=== PATIENT | male | born 1990 | race Caucasian/White ===

== ENCOUNTER 2024-04-08 22:33 | Emergency (ER) | payer SELFPAY ==
[~2024-04-08] VITALS: Ht 172.7 cm; Wt 68.0 kg
[2024-04-08 22:35] VITALS: BP 125/84; PULSE 69; RESP 18; TEMP 98; O2SAT 97
[2024-04-08] MEDS ORDERED: cefTRIAXone 1,000 MG in LIDOCAINE MPF 1% 2.1 ML IM ONE (23:50)
== END 2024-04-08 23:51 | disposition left against medical advice (07) ==
LOC: MED 22:33
DX: S31.103A Unspecified open wound of abdominal wall, right lower quadrant without penetration into peritoneal cavity, initial encounter (principal); J45.909 Unspecified asthma, uncomplicated; Z53.21 Procedure and treatment not carried out due to patient leaving prior to being seen by health care provider; X58.XXXA Exposure to other specified factors, initial encounter; Y93.89 Activity, other specified; Y92.89 Other specified places as the place of occurrence of the external cause; Y99.8 Other external cause status